=== PATIENT | female | born 1940 | race Caucasian/White ===

== ENCOUNTER 2016-05-29 10:22 | Emergency (ER) | payer OTHER ==
[~2016-05-29] VITALS: Ht 162.6 cm; Wt 63.6 kg
[~2016-05-29 10:22] MED LIST: ACET-2247 PO; CEFT1PB IV; DSS100 PO; HEPA500017 SQ; INSNOV SQ; LOSA50TA37 PO; MOM30 PO; PANT40TA25 PO
[2016-05-29 10:56] LABS: GLUCOSE,POINT OF CARE 143 MG/DL (70-110)
[2016-05-29 13:10] LABS: APPEARANCE,URINE CLEAR (CLEAR); GLUCOSE, URINE (UA) NEGATIVE (NEGATIVE); KETONES,URINE NEGATIVE (NEGATIVE); LEUKOCYTE ESTERASE ,URINE SMALL (NEGATIVE); OCCULT BLOOD,URINE NEGATIVE (NEGATIVE); PH,URINE 6.5 (5.0-8.0); PROTEIN,URINE NEGATIVE (NEGATIVE)
[2016-05-29 13:12] LABS: ADD UA MICROSCOPIC YES
[2016-05-29 13:16] LABS: RBC,URINE None Seen /HPF (0-2); SQUAMOUS EPITHELIAL CELL,UR Few /LPF (None Seen)
[2016-05-29] MEDS: SODIUM CHLORIDE 0.9% 1,000 ML IV ONE ×2 (14:08→14:12)
[2016-05-29] MEDS ORDERED: METHOCARBAMOL 500 MG TABLET PO ONE (14:15)
[2016-05-29] MEDS ORDERED: KETOROLAC TROMETHAMINE 60 MG/2 ML VIAL IM ONE (14:15)
[2016-05-29 15:45] VITALS: BP 141/82
== END 2016-05-29 16:03 | disposition home or self-care (01) ==
LOC: EMS 10:26
DX: S39.012A Strain of muscle, fascia and tendon of lower back, initial encounter (principal); I10 Essential (primary) hypertension; I25.2 Old myocardial infarction; Z79.4 Long term (current) use of insulin; X58.XXXA Exposure to other specified factors, initial encounter; Y93.89 Activity, other specified; Y92.89 Other specified places as the place of occurrence of the external cause; Y99.8 Other external cause status
CPT/HCPCS: 80307; 81001; 82962; 96372; 99284; J1885; 99283; J7030

== ENCOUNTER 2016-08-24 09:44 | Inpatient (IN) | payer MEDICARE, OTHER ==
[~2016-08-24] VITALS: Ht 160 cm; Wt 71.2 kg
[2016-08-24] MEDS ORDERED: OMEP20CA10 PO (09:56)
[2016-08-24 10:02] LABS: GLUCOSE,POINT OF CARE 171 MG/DL (70-110)
[2016-08-24 10:16] LABS: BASOPHILS % (AUTO) 0.4 % (0.0-2.0); EOSINOPHILS % (AUTO) 0.7 % (1.0-6.0); HEMATOCRIT 45.2 % (36-46); LYMPHOCYTES # (AUTO) 1.3 K/uL (1.0-4.8); LYMPHOCYTES % (AUTO) 23.8 % (22.0-44.0); MEAN CORPUSCULAR HEMOGLOBIN 30.4 pg (26.0-34.0); MEAN CORPUSCULAR HGB CONC 33.1 G/dL (31.0-37.0); MEAN CORPUSCULAR VOLUME 92 fL (80-100); MONOCYTES # (AUTO) 0.3 K/uL (0.1-1.0); MONOCYTES % (AUTO) 5.8 % (2.0-9.0); NEUTROPHILS # (AUTO) 3.8 K/uL (1.8-7.7); NEUTROPHILS % (AUTO) 69.3 % (40.0-70.0); PLATELET COUNT (AUTO) 300 K/uL (150-450); RED BLOOD CELL COUNT(AUTO) 4.91 MIL/uL (4.00-5.20); RED CELL DISTRIBUTION WIDTH 14.4 % (11.5-14.5); WHITE BLOOD COUNT (AUTO) 5.5 K/uL (4.5-11.0)
[2016-08-24 10:29] LABS: ANION GAP 9 mmol/L (8-16); CALCIUM, TOTAL 9.2 mg/dL (8.8-10.5); CARBON DIOXIDE 27 mmol/L (22-29); CHLORIDE 102 mmol/L (98-107); CREATININE 0.84 mg/dL (0.60-1.30); GLOMERULAR FILTR. RATE CALC > 60 mL/min (>60); POTASSIUM 3.6 mmol/L (3.5-5.1); PROTHROMBIN TIME 10.7 SEC (9.4-11.6); SODIUM SERUM 138 mmol/L (136-145); UREA NITROGEN, BLOOD 10 mg/dL (7-18)
[2016-08-24 10:33] LABS: B-TYPE NATRIURETIC PEPTIDE 257 pg/mL (0-100)
[2016-08-24 10:53] LABS: ALANINE AMINOTRANSFERASE 39 U/L (12-78); ALBUMIN 4.3 g/dL (3.4-5.0); ASPARTATE AMINOTRANSFERASE 37 U/L (15-37); BILIRUBIN,TOTAL 0.4 mg/dL (0.1-1.0); CREATINE KINASE, TOTAL 178 U/L (26-192); TOTAL PROTEIN, SERUM 8.6 g/dL (6.4-8.2)
[2016-08-24 11:38] LABS: APPEARANCE,URINE CLEAR (CLEAR); GLUCOSE, URINE (UA) NEGATIVE (NEGATIVE); KETONES,URINE NEGATIVE (NEGATIVE); LEUKOCYTE ESTERASE ,URINE TRACE (NEGATIVE); OCCULT BLOOD,URINE NEGATIVE (NEGATIVE); PH,URINE 7.5 (5.0-8.0); PROTEIN,URINE NEGATIVE (NEGATIVE)
[2016-08-24 11:44] LABS: ADD UA MICROSCOPIC YES
[2016-08-24 11:49] LABS: RBC,URINE None Seen /HPF (0-2); SQUAMOUS EPITHELIAL CELL,UR None Seen /LPF (None Seen); WBC,URINE 0-2 /HPF (0-5)
[2016-08-24] MEDS ORDERED: ASPIRIN 81 MG CHEWABLE TABLET PO ONE (13:00)
[2016-08-24] MEDS ORDERED: NITROGLYCERIN 2% (1 GM=INCH) PACKET TP ONE (13:00)
[2016-08-24] MEDS: ACETAMINOPHEN 500 MG TABLET PO ONE ×2 (13:50→14:20)
[2016-08-24] MEDS ORDERED: LOSARTAN POTASSIUM 50 MG TABLET PO ONE (15:45)
[2016-08-24] MEDS ORDERED: LORazepam 2 MG/ML VIAL IVP ONE (16:30)
[2016-08-24 20:02] VITALS: BP 168/96
[2016-08-24] MEDS ORDERED: ZOLPIDEM TARTRATE 5 MG TABLET PO PRN (20:30)
[2016-08-24] MEDS ORDERED: MORPHINE SULFATE 2 MG/ML SYRINGE IVP PRN (20:30)
[2016-08-24] MEDS ORDERED: HYDROCODONE/ACETAMINOPHEN 5-325 MG TABLET PO PRN (20:30)
[2016-08-24] MEDS ORDERED: MAGNESIUM HYDROXIDE SUSPENSION 30 ML UDCUP PO PRN (20:30)
[2016-08-24] MEDS ORDERED: BISACODYL 10 MG RECTAL RECTAL SUPPOSITORY PR PRN (20:30)
[2016-08-24] MEDS ORDERED: ONDANSETRON HCL 4 MG/2 ML VIAL IVP PRN (20:30)
[2016-08-24] MEDS ORDERED: 0.9% SODIUM CHLORIDE 10 ML SYRINGE IVP PRN (20:30)
[2016-08-24] MEDS: ASPIRIN 81 MG EC TABLET PO SCH (22:50)
[2016-08-24] MEDS: PANTOPRAZOLE SODIUM 40 MG DR TABLET PO SCH (22:50)
[2016-08-24] MEDS: DOCUSATE SODIUM 100 MG CAPSULE PO SCH (22:50)
[2016-08-24] MEDS: LOSARTAN POTASSIUM 50 MG TABLET PO SCH (22:51)
[2016-08-24] MEDS: CARVEDILOL 6.25 MG TABLET PO SCH (22:52)
[2016-08-24] MEDS: NITROGLYCERIN 2% (1 GM=INCH) PACKET TP SCH (22:55)
[2016-08-24] MEDS: ENOXAPARIN SODIUM 80 MG/0.8 ML PF SYRINGE SQ SCH (22:57)
[2016-08-24 23:55] VITALS: BP 135/75
[2016-08-25] MEDS ORDERED: PNEUMOCOCCAL VACCINE POLYVALENT 0.5 ML VIAL [PPSV23] IM ONE (04:15)
[2016-08-25 05:04] VITALS: BP 131/83
[2016-08-25 07:36] VITALS: BP 140/77
[2016-08-25] MEDS ORDERED: CLOPIDOGREL BISULFATE 75 MG TABLET PO SCH (09:00)
[2016-08-25] MEDS ORDERED: ENOXAPARIN SODIUM 40 MG/0.4 ML PF SYRINGE SQ SCH (09:00)
[2016-08-25] MEDS: NITROGLYCERIN 2% (1 GM=INCH) PACKET TP SCH ×4 (09:00→21:32)
[2016-08-25] MEDS: ASPIRIN 81 MG EC TABLET PO SCH (09:34)
[2016-08-25] MEDS: PANTOPRAZOLE SODIUM 40 MG DR TABLET PO SCH (09:35)
[2016-08-25] MEDS: CARVEDILOL 6.25 MG TABLET PO SCH ×2 (09:35→21:31)
[2016-08-25] MEDS: ENOXAPARIN SODIUM 80 MG/0.8 ML PF SYRINGE SQ SCH ×2 (09:35→21:31)
[2016-08-25] MEDS: LOSARTAN POTASSIUM 50 MG TABLET PO SCH (09:35)
[2016-08-25] MEDS: DOCUSATE SODIUM 100 MG CAPSULE PO SCH ×2 (09:35→21:31)
[2016-08-25 10:32] VITALS: BP 133/76
[2016-08-25 16:14] VITALS: BP 136/75
[2016-08-25 19:12] VITALS: BP 113/52
[2016-08-25 23:58] VITALS: BP 100/52
[2016-08-26 03:47] VITALS: BP 110/63
[2016-08-26 06:46] LABS: CHOL/HDL RATIO 4.3 (3.9-5.7)
[2016-08-26 07:14] VITALS: BP_SYST 122; BP_SYST 141; BP_DIAS 80; BP_DIAS 88
[2016-08-26] MEDS: ASPIRIN 81 MG EC TABLET PO SCH (08:21)
[2016-08-26] MEDS: PANTOPRAZOLE SODIUM 40 MG DR TABLET PO SCH (08:21)
[2016-08-26] MEDS: DOCUSATE SODIUM 100 MG CAPSULE PO SCH ×2 (08:21→21:18)
[2016-08-26] MEDS: ENOXAPARIN SODIUM 80 MG/0.8 ML PF SYRINGE SQ SCH (08:22)
[2016-08-26] MEDS: LOSARTAN POTASSIUM 50 MG TABLET PO SCH (08:22)
[2016-08-26] MEDS: CARVEDILOL 6.25 MG TABLET PO SCH ×2 (08:22→21:18)
[2016-08-26] MEDS: NITROGLYCERIN 2% (1 GM=INCH) PACKET TP SCH ×3 (08:27→21:00)
[2016-08-26 10:50] VITALS: BP 124/59
[2016-08-26 14:45] VITALS: BP 114/51
[2016-08-26 19:25] VITALS: BP 124/64
[2016-08-26] MEDS: ATORVASTATIN CALCIUM 20 MG TABLET PO SCH (21:18)
[2016-08-26 23:48] VITALS: BP 125/63
[2016-08-27] VITALS (15 sets, daily range): BP systolic 97–184; BP diastolic 50–118
[2016-08-27] MEDS ORDERED: SODIUM BICARBONATE 50 MEQ/50 ML VIAL ONE (09:04)
[2016-08-27] MEDS ORDERED: HEPARIN SODIUM 1000 UNITS/NS 1,000 ML ONE (09:04)
[2016-08-27] MEDS ORDERED: IOHEXOL 300 MG/ML 150 ML VIAL ONE (09:04)
[2016-08-27] MEDS ORDERED: LIDOCAINE HCL/PF 1% 30 ML VIAL ONE ×2 (09:04→09:10)
[2016-08-27] MEDS ORDERED: FentaNYL CITRATE-PF 100 MCG/2 ML VIAL ONE (09:51)
[2016-08-27] MEDS ORDERED: MIDAZOLAM HCL 2 MG/2 ML VIAL ONE (09:51)
[2016-08-27] MEDS ORDERED: HEPARIN SODIUM 1000 UNITS/NS 1,000 ML IARTER ONE (09:59)
[2016-08-27] MEDS ORDERED: SODIUM CHLORIDE 0.9% 500 ML IV ONE (09:59)
[2016-08-27] MEDS ORDERED: FentaNYL CITRATE-PF 100 MCG/2 ML VIAL IVP ONE (10:00)
[2016-08-27] MEDS ORDERED: MIDAZOLAM HCL 2 MG/2 ML VIAL IVP ONE (10:00)
[2016-08-27] MEDS ORDERED: LIDOCAINE 1% 30 ML/SOD BICARB 8.4% 4 ML SQ ONE (10:00)
[2016-08-27] MEDS ORDERED: IOHEXOL 300 MG/ML 150 ML VIAL IARTER ONE (10:00)
[2016-08-27] MEDS ORDERED: ASPIRIN 81 MG CHEWABLE TABLET ONE (10:07)
[2016-08-27] MEDS ORDERED: TICAGRELOR 90 MG TABLET ONE (10:07)
[2016-08-27] MEDS ORDERED: HydrALAZINE HCL 20 MG/ML VIAL ONE (10:14)
[2016-08-27] MEDS ORDERED: HEPARIN SODIUM,PORCINE 1,000 UNITS/ML 10 ML VIAL ONE (10:14)
[2016-08-27] MEDS ORDERED: IOHEXOL 300 MG/ML 100 ML VIAL ONE (10:15)
[2016-08-27] MEDS ORDERED: EPTIFIBATIDE 75 MG/ISO-OSM 100 ML IV SCH (10:15)
[2016-08-27] MEDS ORDERED: EPTIFIBATIDE 2 MG/ML 10 ML VIAL IVP ONE ×2 (10:15→10:16)
[2016-08-27] MEDS ORDERED: ASPIRIN 81 MG CHEWABLE TABLET PO ONE (10:15)
[2016-08-27] MEDS ORDERED: HEPARIN SODIUM,PORCINE 5,000 UNITS/ML VIAL IVP ONE (10:15)
[2016-08-27] MEDS ORDERED: TICAGRELOR 90 MG TABLET PO ONE (10:15)
[2016-08-27] MEDS ORDERED: EPTIFIBATIDE 75 MG/ISO-OSM 100 ML IV ONE (10:17)
[2016-08-27] MEDS ORDERED: NITROGLYCERIN 50 MG/D5% WATER 250 ML ONE (10:27)
[2016-08-27] MEDS ORDERED: VERAPAMIL HCL 2.5 MG/ML 2 ML VIAL ONE (10:27)
[2016-08-27] MEDS ORDERED: HydrALAZINE HCL 20 MG/ML VIAL IVP ONE (10:45)
[2016-08-27] MEDS ORDERED: IOHEXOL 300 MG/ML 50 ML VIAL ONE (10:49)
[2016-08-27] MEDS ORDERED: ONDANSETRON HCL 4 MG/2 ML VIAL ONE (10:51)
[2016-08-27] MEDS ORDERED: VERAPAMIL HCL 2.5 MG/ML 2 ML VIAL ICOR ONE (11:00)
[2016-08-27] MEDS ORDERED: ONDANSETRON HCL 4 MG/2 ML VIAL IVP ONE (11:00)
[2016-08-27] MEDS ORDERED: IOHEXOL 300 MG/ML 100 ML VIAL IARTER ONE (11:00)
[2016-08-27] MEDS ORDERED: NITROGLYCERIN/D5W 50 MG/250 ML IV BOTTLE ICOR ONE (11:00)
[2016-08-27] MEDS ORDERED: IOHEXOL 300 MG/ML 50 ML VIAL IARTER ONE (11:00)
[2016-08-27] MEDS: CARVEDILOL 6.25 MG TABLET PO SCH ×2 (12:57→21:24)
[2016-08-27] MEDS: LOSARTAN POTASSIUM 50 MG TABLET PO SCH (12:58)
[2016-08-27] MEDS: NITROGLYCERIN 2% (1 GM=INCH) PACKET TP SCH ×3 (12:58→21:00)
[2016-08-27] MEDS: DOCUSATE SODIUM 100 MG CAPSULE PO SCH ×2 (12:58→21:24)
[2016-08-27] MEDS: PANTOPRAZOLE SODIUM 40 MG DR TABLET PO SCH (12:58)
[2016-08-27] MEDS: ACETAMINOPHEN 325 MG TABLET PO PRN ×2 (13:06→17:39)
[2016-08-27] MEDS: ATORVASTATIN CALCIUM 20 MG TABLET PO SCH (21:24)
[2016-08-27] MEDS: FUROSEMIDE 20 MG/2 ML VIAL IVP SCH (21:25)
[2016-08-28] MEDS: TICAGRELOR 90 MG TABLET PO SCH ×2 (01:08→08:11)
[2016-08-28 04:10] VITALS: BP 124/58
[2016-08-28 07:46] VITALS: BP 113/58
[2016-08-28] MEDS: DOCUSATE SODIUM 100 MG CAPSULE PO SCH (08:11)
[2016-08-28] MEDS: NITROGLYCERIN 2% (1 GM=INCH) PACKET TP SCH ×2 (08:11→16:00)
[2016-08-28] MEDS: PANTOPRAZOLE SODIUM 40 MG DR TABLET PO SCH (08:11)
[2016-08-28] MEDS: CARVEDILOL 6.25 MG TABLET PO SCH (08:11)
[2016-08-28] MEDS: FUROSEMIDE 20 MG/2 ML VIAL IVP SCH (08:12)
[2016-08-28] MEDS: LOSARTAN POTASSIUM 50 MG TABLET PO SCH (09:00)
[2016-08-28] MEDS ORDERED: ASPIRIN 81 MG CHEWABLE TABLET PO SCH (09:00)
[2016-08-28 11:55] VITALS: BP 122/71
[2016-08-28 15:16] VITALS: BP 128/71
[2016-08-28] MEDS ORDERED: ATOR20TA86 PO (16:56)
[2016-08-28] MEDS ORDERED: ASPI81TA2 PO (16:56)
[2016-08-28] MEDS ORDERED: CARV6.2579 PO (16:56)
== END 2016-08-28 17:15 | disposition home or self-care (01) | DRG 247 ==
LOC: EMS 09:46 → 5N 17:41 → ICU 08-27 11:55 → 5S 08-27 21:45
PROVIDERS: ADMIT Internal Medicine; ATTEND Internal Medicine
PROC: 4A023N7 Measurement of Cardiac Sampling and Pressure, Left Heart, Percutaneous Approach (ICD-10-PCS; principal; 2016-08-27)
PROC: 027035Z Dilation of Coronary Artery, One Artery with Two Drug-eluting Intraluminal Devices, Percutaneous Approach (ICD-10-PCS; 2016-08-27)
PROC: B211YZZ Fluoroscopy of Multiple Coronary Arteries using Other Contrast (ICD-10-PCS; 2016-08-27)
PROC: B41FYZZ Fluoroscopy of Right Lower Extremity Arteries using Other Contrast (ICD-10-PCS; 2016-08-27)
DX: I21.4 Non-ST elevation (NSTEMI) myocardial infarction (principal); I25.10 Atherosclerotic heart disease of native coronary artery without angina pectoris; I10 Essential (primary) hypertension; E78.5 Hyperlipidemia, unspecified; I25.2 Old myocardial infarction; Z82.0 Family history of epilepsy and other diseases of the nervous system; Z82.49 Family history of ischemic heart disease and other diseases of the circulatory system; Z87.440 Personal history of urinary (tract) infections; Z87.891 Personal history of nicotine dependence; Z90.49 Acquired absence of other specified parts of digestive tract; Z95.5 Presence of coronary angioplasty implant and graft; Z79.899 Other long term (current) drug therapy
CPT/HCPCS: 82962; 87081; 92920; 92928; 93005; 93306; 96374; 99285; J0360; J1327; J1644; J1650; J1940; J2060; J2250; J2405; J3010; J3490; Q9967

== ENCOUNTER 2016-08-31 21:42 | Emergency (ER) | payer MEDICARE, OTHER ==
[~2016-08-31] VITALS: Ht 157.5 cm; Wt 70.5 kg
[~2016-08-31 21:42] MED LIST changes: -ACET-2247 PO; +ASPI81TA2 PO; +ATOR20TA86 PO; +CARV6.2579 PO; -CEFT1PB IV; -DSS100 PO; -HEPA500017 SQ; -INSNOV SQ; -MOM30 PO; +OMEP20CA10 PO; -PANT40TA25 PO
[2016-08-31 21:56] LABS: GLUCOSE,POINT OF CARE 129 MG/DL (70-110)
[2016-08-31] MEDS ORDERED: LIDOCAINE HCL BUFFERED 1% 20 ML VIAL INJ ONE (23:30)
[2016-09-01] VITALS: BP 143/75
== END 2016-09-01 00:34 | disposition home or self-care (01) ==
LOC: EMS 21:44
DX: S91.112A Laceration without foreign body of left great toe without damage to nail, initial encounter (principal); S91.115A Laceration without foreign body of left lesser toe(s) without damage to nail, initial encounter; I11.9 Hypertensive heart disease without heart failure; I25.2 Old myocardial infarction; Z79.82 Long term (current) use of aspirin; W20.8XXA Other cause of strike by thrown, projected or falling object, initial encounter; Y93.89 Activity, other specified; Y92.89 Other specified places as the place of occurrence of the external cause; Y99.8 Other external cause status
CPT/HCPCS: 12001; 82962; 99283; J3490